=== PATIENT | female | born 1950 | race Two or more races ===

== ENCOUNTER 2018-06-29 04:51 | Emergency (ER) | payer OTHER ==
[~2018-06-29] VITALS: Ht 160 cm; Wt 126.6 kg
[2018-06-29] MEDS ORDERED: COZAAR100 MG (05:07)
[2018-06-29] MEDS ORDERED: CALAN SR120 MG (05:07)
[2018-06-29] MEDS ORDERED: ROBAXIN500 MG PO (06:00)
== END 2018-06-29 06:15 | disposition home or self-care (01) ==
LOC: ER 04:51
DX: M94.0 Chondrocostal junction syndrome [Tietze] (principal)